=== PATIENT | female | born 1980 | race Caucasian/White ===

== ENCOUNTER 2019-04-15 04:40 | Emergency (ER) | payer SELFPAY ==
[~2019-04-15] VITALS: Ht 162.6 cm; Wt 48.1 kg
[2019-04-15 04:44] VITALS: Ht 162.6 cm; Wt 48.1 kg
[2019-04-15 07:00] VITALS: BP 109/61
== END 2019-04-15 07:00 | disposition home or self-care (01) ==
LOC: ED 04:40
DX: S20.212A Contusion of left front wall of thorax, initial encounter (principal); S60.211A Contusion of right wrist, initial encounter; V09.9XXA Pedestrian injured in unspecified transport accident, initial encounter; Y93.89 Activity, other specified; Y92.89 Other specified places as the place of occurrence of the external cause; Y99.8 Other external cause status
CPT/HCPCS: J1885